=== PATIENT | female | born 1965 | race Caucasian/White ===

== ENCOUNTER 2016-12-05 19:43 | Emergency (ER) | payer OTHER ==
[~2016-12-05] VITALS: Ht 162.6 cm; Wt 123.1 kg
[2016-12-05] MEDS ORDERED: SYNTHROID25 MCG PO (20:39)
[2016-12-05 22:10] LABS: HEMATOCRIT 38.9 % (36.0-46.0); MCH 29.7 PG (29.0-34.0); MCHC 32.6 G/DL (30.0-36.0); MCV 91.1 FL (83-99); MEAN PLAT.VOLUME 9.7 uM^3 (9.5-12.4); PLATELET COUNT 267 K/uL (156-360); RBC DIS.WIDTH-CV 15.1 % (11.8-14.6); RBC DIS.WIDTH-SD 49.5 % (39-53); RED BLOOD COUNT 4.27 M/uL (3.80-5.20); WHITE BLOOD COUNT 11.1 K/uL (4.1-10.2)
[2016-12-05 22:18] LABS: CHLORIDE 105 mEq/L (99-109); POTASSIUM 3.8 mEq/L (3.7-5.4); SODIUM 140 mEq/L (136-147)
[2016-12-05 22:20] LABS: GLUCOSE 112 mg/dL (70-99)
[2016-12-05 22:21] LABS: ANION GAP 9 MEQ/L (2-14)
[2016-12-05 22:24] LABS: GFR ESTIMATE (CALCULATED) > 59 mL/min/
[2016-12-05 22:25] LABS: UREA NITROGEN (BUN) 16 mg/dL (9-23)
[2016-12-05 22:26] LABS: URIC ACID 5.9 mg/dL (3.1-9.2)
[2016-12-05 22:46] LABS: C-REACTIVE PROTEIN 21.9 MG/L (0-10)
[2016-12-05 23:38] VITALS: BP 123/73
[2016-12-05] MEDS ORDERED: PERCOCET 5/31 TABLET PO (23:40)
== END 2016-12-05 23:54 | disposition home or self-care (01) ==
LOC: EME 19:43 → EXP 19:43
PROVIDERS: Physician Assistant
DX: M25.472 Effusion, left ankle (principal); M25.572 Pain in left ankle and joints of left foot; M79.672 Pain in left foot; M79.89 Other specified soft tissue disorders; R79.82 Elevated C-reactive protein (CRP); E03.9 Hypothyroidism, unspecified; F17.200 Nicotine dependence, unspecified, uncomplicated
CPT/HCPCS: 73610; 80048; 84550; 85027; 86140; 93971; 99281; 99284